=== PATIENT | male | born 1995 | race Caucasian/White ===

== ENCOUNTER 2021-10-04 16:48 | Emergency (ER) | payer OTHER ==
[~2021-10-04 16:48] MED LIST: ALTACE2.5 MG PO; ASPIRIN CHEWABL81 MG PO; AUGMENTIN 875-1 EACH PO; GLUCAGEN1 MG/1 ML IM; GLUCOPHAGE 500500 MG PO; GLUTOSE 1537.5 GM PO; HUMALOG 10100 UNITS/ SC; LANTUS INS100 UTS/M1 SQ; LISINOPRIL5 MG PO; METFORMIN HCL1000 MG PO; NOVOLIN 70100 UNIT/2 SQ; ZOLOFT50 MG PO
[2021-10-04] MEDS ORDERED: MELOXICAM7.5 MG PO (20:22)
[2021-10-04] MEDS ORDERED: ROBAXIN 750 MG750 MG PO (20:22)
== END 2021-10-04 20:52 | disposition home or self-care (01) ==
LOC: ER1 16:48
DX: S39.012A Strain of muscle, fascia and tendon of lower back, initial encounter (principal); M54.42 Lumbago with sciatica, left side; E11.9 Type 2 diabetes mellitus without complications; X58.XXXA Exposure to other specified factors, initial encounter
CPT/HCPCS: 96372; 99283; J1885

== ENCOUNTER → 2021-10-17 | Outpatient (CLI) | payer BC, OTHER ==
[~2021-10-17] MED LIST changes: +MELOXICAM7.5 MG PO; +ROBAXIN 750 MG750 MG PO
== END ==
LOC: KOH-I 15:43
DX: M54.50 Low back pain, unspecified (principal); M25.572 Pain in left ankle and joints of left foot; M47.816 Spondylosis without myelopathy or radiculopathy, lumbar region
CPT/HCPCS: 72070; 72100; 73610

== ENCOUNTER 2021-12-02 16:40 | Emergency (ER) | payer OTHER ==
[2021-12-02] MEDS ORDERED: IBUPROFEN600 MG PO (19:28)
[2021-12-02] MEDS ORDERED: CYCLOBENZAPRINE10 MG PO (19:28)
== END 2021-12-02 20:00 | disposition home or self-care (01) ==
LOC: ER1 16:40
DX: S16.1XXA Strain of muscle, fascia and tendon at neck level, initial encounter (principal); E11.9 Type 2 diabetes mellitus without complications; Z79.84 Long term (current) use of oral hypoglycemic drugs; X58.XXXA Exposure to other specified factors, initial encounter
CPT/HCPCS: 72125; 96372; 99284; J1885